=== PATIENT | male | born 1985 | race Caucasian/White ===

== ENCOUNTER 2021-10-21 22:40 | Observation (INO) ==
[2021-10-22] MEDS ORDERED: NS 0.9% 1000 ml BAG 1,000 ML IV ONE (02:11)
[2021-10-22 02:28] LABS: ALT 10 U/L (7-52); Albumin 3.9 g/dL (3.2-5.2); Alkaline Phosphatase 135 U/L (35-149); Blood Urea Nitrogen 13 mg/dL (6-24); C Reactive Protein 330.58 mg/L (<8.01); CO2 Carbon Dioxide 29 mmol/L (22-32); Calcium 8.9 mg/dL (8.6-10.3); Chloride 94 mmol/L (101-111); Globulin 3.9 g/dL (2-4); Glucose 104 mg/dL (70-100); Lipase 11 U/L (11.0-82.0); Sodium 129 mmol/L (135-145); Total Protein 7.8 g/dL (6.4-8.9); eGFR CKD-EPI 86.8 (>60)
[2021-10-22 02:36] LABS: Anion Gap 6 mmol/L (2-11)
[2021-10-22] MEDS ORDERED: Iohexol 350 (CONTRAST) 500 ML MDV IV ONE (02:49)
[2021-10-22 02:55] LABS: ABS Eosinophils 0.1 10^3/ul (0-0.6); ABS Lymphocytes 0.9 10^3/ul (1.0-4.8); ABS Monocytes 1.6 10^3/ul (0-0.8); ABS Neutrophils 15.6 10^3/ul (1.5-7.7); Eosinophil % 0.8 %; Lymphocyte % 4.9 %
[2021-10-22 03:33] LABS: Potassium Redraw 3.7 mmol/L (3.5-5.0)
[2021-10-22] MEDS ORDERED: Piperacillin/Tazobac ADVAN 3.375 GM in NS 0.9% 100 ml BAG 100 ML IV ONE (04:54)
[2021-10-22 05:35] LABS: Urine Appearance Clear; Urine Bilirubin Negative (Negative); Urine Blood Negative (Negative); Urine Color Yellow; Urine Glucose Negative (Negative); Urine Ketones Negative (Negative); Urine Protein Negative (Negative); Urine Specific Gravity <=1.005 (1.005-1.030); Urine Urobilinogen 1.0 (Negative) (Negative)
[2021-10-22 05:36] LABS: Urine Nitrite Negative (Negative)
[2021-10-22] MEDS ORDERED: Morphine 4 MG/ML VIAL (1 ml) IV ONE (07:54)
[2021-10-22 08:10] LABS: Hematocrit 31 % (42-52); Hemoglobin 10.5 g/dL (14.0-18.0); Mean Corpuscular HGB Conc 34 g/dL (31-36); Mean Corpuscular Hemoglobin 29 pg (27-31); Mean Corpuscular Volume 87 fL (80-94); Mean Platelet Volume 7.2 fL (7.4-10.4); Platelet Count 286 10^3/uL (150-450); Red Blood Count 3.59 10^6 /uL (4.18-5.48); Red Cell Distribution Width 14 % (10-15); White Blood Count 16.7 10^3/uL (3.5-10.8)
[2021-10-22 08:26] LABS: Hematocrit 34 % (42-52); Hemoglobin 11.8 g/dL (14.0-18.0); Mean Corpuscular HGB Conc 34 g/dL (31-36); Mean Corpuscular Hemoglobin 29 pg (27-31); Mean Corpuscular Volume 85 fL (80-94); Mean Platelet Volume 6.4 fL (7.4-10.4); Platelet Count 307 10^3/uL (150-450); Red Blood Count 4.03 10^6 /uL (4.18-5.48); Red Cell Distribution Width 14 % (10-15); White Blood Count 17.3 10^3/uL (3.5-10.8)
[2021-10-22] MEDS ORDERED: Bupivacaine 0.25% EPI 200,000 30 ML SDV ONE (08:30)
[2021-10-22] MEDS ORDERED: Rocuronium 50 mg VIAL 10 mg/ml 5 ml VIAL (50 mg) ONE ×2 (08:34→09:59)
[2021-10-22] MEDS ORDERED: Succinylcholine 200 mg VIAL 20 mg/ml 10 ml VIAL (200 mg) ONE (08:34)
[2021-10-22] MEDS ORDERED: Dexamethasone IV 4 MG/ML VIAL 1 ml VIAL ONE (08:34)
[2021-10-22] MEDS ORDERED: Lidocaine 2% PF 5 ML VIAL ONE (08:34)
[2021-10-22] MEDS ORDERED: Ondansetron 4 mg VIAL 2 MG/ML 2 ml VIAL ONE (08:34)
[2021-10-22] MEDS ORDERED: Propofol 10 MG/ML 20 ML BTL ONE (08:34)
[2021-10-22] MEDS ORDERED: fentaNYL 100 mcg/2 ml 50 MCG/ML VIAL ONE (08:34)
[2021-10-22] MEDS ORDERED: NS 0.9% 1000 ml BAG 1,000 ML IV SCH (08:45)
[2021-10-22] MEDS ORDERED: fentaNYL 250 mcg/5 ml 50 MCG/ML 5 ml VIAL (250 MCG) ONE (09:15)
[2021-10-22] MEDS ORDERED: Acetaminophen IV 1 GM/100ML 1,000 MG/100 ML BAG IV ONE (09:39)
[2021-10-22 10:10] LABS: ABS Eosinophils 0.1 10^3/ul (0-0.6); ABS Lymphocytes 0.7 10^3/ul (1.0-4.8); ABS Monocytes 1.2 10^3/ul (0-0.8); ABS Neutrophils 15.1 10^3/ul (1.5-7.7); Eosinophil % 0.8 %; Lymphocyte % 4.1 %
[2021-10-22] MEDS ORDERED: HYDROmorphone 0.5 MG/0.5 ML SYRINGE ONE (11:16)
[2021-10-22] MEDS ORDERED: Naloxone 0.4 mg VIAL 0.4 mg/ml 1 ml VIAL IV PRN (11:24)
[2021-10-22] MEDS ORDERED: Ondansetron 4 mg VIAL 2 MG/ML 2 ml VIAL IV PRN (11:36)
[2021-10-22] MEDS ORDERED: HYDROmorphone 0.5 MG/0.5 ML SYRINGE IV SLOW PU PRN ×2 (11:52)
[2021-10-22] MEDS ORDERED: HYDROmorphone 1 MG/1 ML SYRINGE ONE (11:56)
[2021-10-22] MEDS: HYDROmorphone 1 MG/1 ML SYRINGE IV PRN ×2 (11:57→12:09)
[2021-10-22] MEDS ORDERED: Zosyn per Pharmacy NOTE FOLLOW UP SCH (12:00)
[2021-10-22] MEDS ORDERED: ZOSYN 3.375 GM x ONE DOSE over 30 miuntes IV (13:00)
[2021-10-22] MEDS: NS 0.9% 1000 ml BAG 1,000 ML IV SCH (13:05)
[2021-10-22] MEDS: Methadone ORALSYR CONC LIQ 10 MG/ML PO SCH (16:33)
[2021-10-22] MEDS: ZOSYN 3.375 GM Q8H per EXTENDED INFUSION IV SCH (16:37)
[2021-10-23] MEDS: ZOSYN 3.375 GM Q8H per EXTENDED INFUSION IV SCH ×2 (00:51→09:03)
[2021-10-23] MEDS: NS 0.9% 1000 ml BAG 1,000 ML IV SCH (05:47)
[2021-10-23 06:08] LABS: ABS Lymphocytes 0.7 10^3/ul (1.0-4.8); ABS Monocytes 0.9 10^3/ul (0-0.8); ABS Neutrophils 11.9 10^3/ul (1.5-7.7); Hematocrit 27 % (42-52); Hemoglobin 9.2 g/dL (14.0-18.0); Lymphocyte % 5.4 %; Mean Corpuscular HGB Conc 34 g/dL (31-36); Mean Corpuscular Hemoglobin 29 pg (27-31); Mean Corpuscular Volume 85 fL (80-94); Mean Platelet Volume 6.7 fL (7.4-10.4); Platelet Count 305 10^3/uL (150-450); Red Blood Count 3.12 10^6 /uL (4.18-5.48); Red Cell Distribution Width 14 % (10-15); White Blood Count 13.6 10^3/uL (3.5-10.8)
[2021-10-23 06:27] LABS: Calcium 7.8 mg/dL (8.6-10.3)
[2021-10-23 07:49] VITALS: BP 122/79
[2021-10-23] MEDS: Methadone ORALSYR CONC LIQ 10 MG/ML PO SCH (09:02)
== END 2021-10-23 11:40 | disposition home or self-care (01) ==
LOC: SSU 22:40 → ED 22:40 → EDHOLD 22:40 → INTOOBSV 10-22 08:16 → EDHOLD 10-22 08:16 → SSU 10-22 12:49
PROVIDERS: ADMIT Registered Nurse Registered Nurse First Assistant; ATTEND Registered Nurse Registered Nurse First Assistant